=== PATIENT | male | born 1940 | race Caucasian/White ===

== ENCOUNTER 2021-05-09 16:12 | Emergency (ER) | payer MEDICARE, OTHER ==
[~2021-05-09 16:12] MED LIST: ACETAMINOPHEN325 MG PO; ALL DAY ALLERGY10 M3 PO; ALLOPURINOL 10100 MG PO; AMITIZA24 MCG PO; ASPIRIN CHEWABL81 MG PO; CLEOCIN150 MG PO; COLACE100 MG PO; CRESTOR20 MG PO; DRISDOL50000 UNIT PO; ELAVIL50 MG PO; FEOSOL325 MG PO; FLOMAX0.4 MG PO; GLUCOTROL10 MG PO; HUMALOG100 UNIT/1 SC; HUMULIN R100 UNIT/1 SC; LACTULOSE20 GM/30 M PO; LASIX40 MG PO; LEVAQUIN500 MG PO; LEVEMIR100 UNIT/1 SC; LISINOPRIL20 MG PO; LOVENOX30 MG/0.3 SQ; METFORMIN HCL500 MG PO; MICRO-K10 MEQ PO; MOBIC15 MG PO; MUCINEX 600MG600 MG PO; NEURONTIN600 MG PO; NORVASC5 MG PO; PRILOSEC20 MG PO; PROSCAR5 MG PO; REGLAN10 MG PO; TOPROL XL 25MG25 MG PO; XOPENEX (11.25 MG/3 INH; ZAROXOLYN2.5 MG PO; ZOFRAN4 MG PO; [UNRECOGNIZED DRUG - OTHER]; [UNRECOGNIZED DRUG - OTHER]
[2021-05-09 17:07] LABS: BASOPHIL 0.3 % (0-2); EOSINOPHIL 1.6 % (0-7); HCT 36.7 % (42.0-52.0); HGB 11.3 g/dl (13.2-18.0); LYMPHOCYTE 15.2 % (15-48); MCH 28.6 pg (25.0-31.0); MCHC 30.8 g/dL (32.0-36.0); MCV 92.9 fL (78.0-100.0); MONOCYTE 7.6 % (0-12); NEUTROPHIL 74.6 % (41-80); NRBC 0; PLT 337 K/uL (150-400); RBC 3.95 M/uL (4.70-6.00); RDW 15.8 % (11.5-14.0); WBC 11.6 K/uL (4.0-10.5)
[2021-05-09 17:17] LABS: INR 1.05 (0.9-1.2); PROTHROMBIN TIME 13.1 SECONDS (11.8-13.4); PTT 30.1 SECONDS (24.4-34.7)
[2021-05-09 17:27] LABS: ALBUMIN 3.5 g/dL (3.4-5.0); BILIRUBIN - TOTAL 0.3 mg/dL (0.2-1.0); BUN/CREAT RATIO (CALC) 23.9 RATIO; CREATININE 0.92 mg/dL (0.67-1.17); GLOBULIN (CALCULATION) 4.1 g/dL; POTASSIUM 4.9 mmol/L (3.5-5.1); TOTAL PROTEIN 7.6 g/dL (6.4-8.2)
[2021-05-09 17:32] LABS: LACTIC ACID 3.7 mmol/L (0.4-1.9)
[2021-05-09 17:46] LABS: BILIRUBIN NEGATIVE (NEGATIVE); BLOOD TRACE-INTACT Ery/uL (NEGATIVE); CLARITY CLEAR (CLEAR); COLOR YELLOW (YELLOW); GLUCOSE (U) 3+ mg/dL (NORMAL); LEUKOCYTES NEGATIVE Leu/uL (NEGATIVE); NITRITE NEGATIVE (NEGATIVE); PROTEIN TRACE (LOW) mg/dL (NEGATIVE); SPECIFIC GRAVITY 1.015 (1.001-1.030); UROBILINOGEN 0.2 mg/dL (0.2-1.0); pH 5.5 (5.0-9.0)
[2021-05-09 17:52] LABS: URINARY RBC RARE
[2021-05-09 17:53] LABS: SQUAMOUS EPITHELIAL CELLS RARE
[2021-05-09] MEDS ORDERED: NORCO 5-325 TA1 EACH PO (19:35)
== END 2021-05-09 20:35 | disposition home or self-care (01) ==
LOC: FER 16:12
PROVIDERS: Emergency Medicine
DX: S22.42XA Multiple fractures of ribs, left side, initial encounter for closed fracture (principal); I11.0 Hypertensive heart disease with heart failure; I50.9 Heart failure, unspecified; E11.9 Type 2 diabetes mellitus without complications; E66.9 Obesity, unspecified; Z79.4 Long term (current) use of insulin; Z88.2 Allergy status to sulfonamides; W19.XXXA Unspecified fall, initial encounter
CPT/HCPCS: 36415; 70450; 71250; 73030; 80053; 81001; 83605; 84145; 84484; 85025; 85610; 85730; 87088; 93005; 94010; J1170; J2270; J2405

== ENCOUNTER 2021-05-12 11:19 | Inpatient (IN) | payer MEDICARE, OTHER ==
[~2021-05-12] VITALS: Ht 182.9 cm; Wt 101.0 kg
[~2021-05-12 11:19] MED LIST changes: +ALL DAY ALLERGY10 M2 PO; -ASPIRIN CHEWABL81 MG PO; +ASPIRIN EC81 M1 PO; +MICRO-GUARD85 GM TOP; -MICRO-K10 MEQ PO; +NORCO 5-325 TA1 EACH PO
[2021-05-12 12:56] LABS: BASOPHIL 0.2 % (0-2); EOSINOPHIL 1.7 % (0-7); HCT 34.1 % (42.0-52.0); HGB 10.5 g/dl (13.2-18.0); LYMPHOCYTE 15.7 % (15-48); MCH 28.8 pg (25.0-31.0); MCHC 30.8 g/dL (32.0-36.0); MCV 93.4 fL (78.0-100.0); MONOCYTE 5.7 % (0-12); MPV 10.4 fL (6.0-9.5); NEUTROPHIL 76.2 % (41-80); NRBC 0; PLT 299 K/uL (150-400); RBC 3.65 M/uL (4.70-6.00); RDW 15.8 % (11.5-14.0)
[2021-05-12 13:18] LABS: ALBUMIN 3.3 g/dL (3.4-5.0); BILIRUBIN - TOTAL 0.5 mg/dL (0.2-1.0); CREATININE 1.2 mg/dL (0.67-1.17); GLOBULIN (CALCULATION) 3.2 g/dL; TOTAL PROTEIN 6.5 g/dL (6.4-8.2)
[2021-05-12 13:31] LABS: BILIRUBIN NEGATIVE (NEGATIVE); BLOOD NEGATIVE Ery/uL (NEGATIVE); CLARITY CLEAR (CLEAR); COLOR YELLOW (YELLOW); GLUCOSE (U) NORMAL (NORMAL); LEUKOCYTES NEGATIVE Leu/uL (NEGATIVE); NITRITE NEGATIVE (NEGATIVE); PROTEIN 1+ mg/dL (NEGATIVE); SPECIFIC GRAVITY >=1.030 (1.001-1.030); UROBILINOGEN 0.2 mg/dL (0.2-1.0); pH 5.5 (5.0-9.0)
[2021-05-12 13:43] LABS: BACTERIA TRACE
[2021-05-12 13:53] LABS: LACTIC ACID 3.8 mmol/L (0.4-1.9)
[2021-05-12 14:08] LABS: CORONAVIRUS 2019 SARS-COV-2 NEGATIVE (NEGATIVE); INFLUENZA A NAA NEGATIVE (NEGATIVE)
[2021-05-12] MEDS ORDERED: METFORMIN HCL500 MG PO (20:21)
[2021-05-12] MEDS ORDERED: LEVOTHYROXINE25 MCG PO (20:24)
[2021-05-13 04:51] LABS: BASOPHIL 0.2 % (0-2); EOSINOPHIL 2.7 % (0-7); HCT 31.1 % (42.0-52.0); HGB 9.7 g/dl (13.2-18.0); MCH 28.6 pg (25.0-31.0); MCHC 31.2 g/dL (32.0-36.0); MCV 91.7 fL (78.0-100.0); MONOCYTE 6.1 % (0-12); NEUTROPHIL 76.4 % (41-80); NRBC 0; PLT 264 K/uL (150-400); RBC 3.39 M/uL (4.70-6.00); RDW 15.7 % (11.5-14.0); WBC 8.5 K/uL (4.0-10.5)
[2021-05-13 07:14] LABS: BUN/CREAT RATIO (CALC) 21.7 RATIO; CREATININE 0.83 mg/dL (0.67-1.17); MAGNESIUM 1.4 mg/dL (1.8-2.4); POTASSIUM 3.8 mmol/L (3.5-5.1)
[2021-05-14 03:35] LABS: BASOPHIL 0.4 % (0-2); EOSINOPHIL 3.4 % (0-7); HCT 29.6 % (42.0-52.0); HGB 9.2 g/dl (13.2-18.0); LYMPHOCYTE 18.8 % (15-48); MCH 28.7 pg (25.0-31.0); MCHC 31.1 g/dL (32.0-36.0); MCV 92.2 fL (78.0-100.0); MONOCYTE 7.2 % (0-12); MPV 9.3 fL (6.0-9.5); NEUTROPHIL 69.4 % (41-80); NRBC 0; PLT 267 K/uL (150-400); RBC 3.21 M/uL (4.70-6.00); RDW 15.7 % (11.5-14.0); WBC 7.5 K/uL (4.0-10.5)
[2021-05-14 03:53] LABS: BUN/CREAT RATIO (CALC) 13.7 RATIO; CREATININE 0.95 mg/dL (0.67-1.17); MAGNESIUM 2.1 mg/dL (1.8-2.4); PHOSPHORUS 2.9 mg/dL (2.6-4.7); POTASSIUM 3.4 mmol/L (3.5-5.1)
[2021-05-14 20:22] LABS: RETICULOCYTE COUNT 1.9 % (1.0-2.0)
[2021-05-14 20:37] LABS: IRON % SATURATION 15.5 %SAT (20-50)
[2021-05-14 21:13] LABS: FOLIC ACID (SERUM) 51.9 ng/mL (8.6-58.9)
--- NOTE | 2021-05-15 10:46 | NUR ---
05/15/21 Mr. Walters's daughter, Marian Shelby, lives in the home. He is followed by [facility]. Mr. Walters has a rollator, standard walker with sliders, s. chair and cane. Referrals have been made [facility] and [facility] for a 3in1 per family request. [facility] will deliver to home. - Report given to Dr. Sharpe.
[2021-05-15] MEDS ORDERED: AUGMENTIN 875-1 EACH PO (15:47)
[2021-05-15] MEDS ORDERED: MUCINEX1200 MG PO (15:47)
[2021-05-15] MEDS ORDERED: LACTOBACILLUS1 EACH PO (15:47)
[2021-05-15] MEDS ORDERED: VITAMIN B-121000 MC1 PO (15:52)
[2021-05-15] MEDS ORDERED: POLY-IRON150 MG PO (15:52)
== END 2021-05-15 16:30 | disposition home health service (06) | DRG 193 ==
LOC: FER 11:19 → FTCU 16:28
PROVIDERS: Emergency Medicine; Nurse Practitioner; ADMIT Internal Medicine
DX: J18.9 Pneumonia, unspecified organism (principal); G93.41 Metabolic encephalopathy; S22.43XA Multiple fractures of ribs, bilateral, initial encounter for closed fracture; N17.9 Acute kidney failure, unspecified; J98.11 Atelectasis; J90 Pleural effusion, not elsewhere classified; F03.91 Unspecified dementia, unspecified severity, with behavioral disturbance; S37.30XA Unspecified injury of urethra, initial encounter; Z20.822 Contact with and (suspected) exposure to COVID-19; T83.098A Other mechanical complication of other urinary catheter, initial encounter; N40.1 Benign prostatic hyperplasia with lower urinary tract symptoms; R33.8 Other retention of urine; D50.9 Iron deficiency anemia, unspecified; I10 Essential (primary) hypertension; E11.9 Type 2 diabetes mellitus without complications; E03.9 Hypothyroidism, unspecified; M10.9 Gout, unspecified; M54.9 Dorsalgia, unspecified; G89.29 Other chronic pain; E78.5 Hyperlipidemia, unspecified; E11.40 Type 2 diabetes mellitus with diabetic neuropathy, unspecified; G51.0 Bell's palsy; K59.09 Other constipation; K80.20 Calculus of gallbladder without cholecystitis without obstruction; K21.9 Gastro-esophageal reflux disease without esophagitis; Z96.652 Presence of left artificial knee joint; Z96.642 Presence of left artificial hip joint; Z98.49 Cataract extraction status, unspecified eye; W18.30XA Fall on same level, unspecified, initial encounter; Z88.2 Allergy status to sulfonamides; Z79.82 Long term (current) use of aspirin; Z79.899 Other long term (current) drug therapy; Z79.4 Long term (current) use of insulin
CPT/HCPCS: 36415; 36600; 70450; 71045; 71250; 73030; 80048; 80053; 81001; 82140; 82607; 82746; 82803; 82962; 83540; 83550; 83605; 83735; 84100; 84145; 84484; 85025; 85610; 85730; 87040; 87088; 93005; 94010; 97162; 97166; 97530-GP; 97535; J1170; J1815; J2270; J2405; J2543; J3475; J7030; U0002